=== PATIENT | male | born 1945 | race Caucasian/White ===

== ENCOUNTER → 2020-03-12 | Outpatient (CLI) | payer OTHER | LOC: CAT 09:54 | PROVIDERS: ATTEND Family Medicine | DX: Z13.6 Encounter for screening for cardiovascular disorders (principal); I25.10 Atherosclerotic heart disease of native coronary artery without angina pectoris; E78.00 Pure hypercholesterolemia, unspecified ==

== ENCOUNTER → 2020-04-12 | Outpatient (CLI) | payer OTHER | LOC: SJCVCIMAG 12:12 | PROVIDERS: ATTEND Internal Medicine Cardiovascular Disease | DX: R94.31 Abnormal electrocardiogram [ECG] [EKG] (principal); R06.09 Other forms of dyspnea; E78.00 Pure hypercholesterolemia, unspecified; I71.2 Thoracic aortic aneurysm, without rupture; R93.1 Abnormal findings on diagnostic imaging of heart and coronary circulation; I10 Essential (primary) hypertension; R09.89 Other specified symptoms and signs involving the circulatory and respiratory systems ==

== ENCOUNTER → 2020-04-12 | Outpatient (CLI) | payer OTHER | LOC: SJCVCIMAG 09:13 | PROVIDERS: ATTEND Family Medicine | DX: I77.810 Thoracic aortic ectasia (principal); I11.9 Hypertensive heart disease without heart failure; R93.1 Abnormal findings on diagnostic imaging of heart and coronary circulation ==

== ENCOUNTER → 2020-04-22 | Outpatient (CLI) | payer OTHER | LOC: SJCVCIMAG 08:08 | PROVIDERS: ATTEND Internal Medicine Cardiovascular Disease | DX: I71.4 Abdominal aortic aneurysm, without rupture (principal); I71.2 Thoracic aortic aneurysm, without rupture; R09.89 Other specified symptoms and signs involving the circulatory and respiratory systems; Z87.891 Personal history of nicotine dependence ==

== ENCOUNTER → 2020-04-23 | Outpatient (CLI) | payer OTHER | LOC: SJCVCIMAG 07:25 | PROVIDERS: ATTEND Internal Medicine Cardiovascular Disease | DX: I45.10 Unspecified right bundle-branch block (principal); I49.3 Ventricular premature depolarization; E78.5 Hyperlipidemia, unspecified; I10 Essential (primary) hypertension; Z79.899 Other long term (current) drug therapy; Z87.891 Personal history of nicotine dependence ==

== ENCOUNTER → 2020-04-28 | Outpatient (CLI) | payer OTHER ==
[~2020-04-28] VITALS: Ht 182.9 cm; Wt 122.5 kg
[~2020-04-28] MED LIST: ASPIR 8181 M1 PO; CRESTOR5 MG PO; DILTIAZEM ER180 M2 PO; FLOMAX0.4 MG PO; GLUCOSAMINE &1 EACH PO; OMEGA-31000 M2 PO; SINGULAIR 10 MG10 M1 PO; SUPER THERAVIT1 EACH PO; VITAMIN B-121000 MC2 PO; VITAMIN C500 M1 PO; ZESTRIL5 MG PO; ZYRTEC10 M4 PO
[2020-04-28 09:28] LABS: HEMOGLOBIN 16.1 gm/dL (14.0-18.0); MCH 32.8 pg (26.0-34.0); MCHC 33.7 g/dL (28.0-37.0); MCV 97.6 fL (80.0-100.0); RBC 4.92 mil/uL (4.50-6.00); RDW 13.3 % (10.5-14.5); WBC 10.5 thou/uL (4.0-11.0)
[2020-04-28 09:36] LABS: CREATININE 1.3 mg/dL (0.7-1.3); POTASSIUM 4.8 mmol/L (3.5-5.1)
[2020-04-28 09:41] VITALS: BP 131/75
--- NOTE | 2020-04-28 13:38 | EKG ---
[facility] [place] [address] ELECTROCARDIOGRAM REPORT Name: ELIANE RAMON Room #: REG [facility]#: [id number] Admission: 04/28/20 Attend Phys: Mauro Lomeli MD, Discharge: Date of : 49 Report #: [id number] THIS REPORT FOR: cc: Jose Alfredo Mcgill MD FAA FACE Jose Alfredo Mcgill MD FAA FACE Del Salmeron MD ~ THIS REPORT FOR: //name// [facility] Test Date: 2020-04-28 Test Time: 09:03:53 Pat Name: ELIANE RAMON Department: Room: Gender: Adult Crossing Guard: SBULRANDI : 1945 Requested By: Mauro Lomeli Order Number: [id number] MD: Del Salmeron Measurements Intervals [place] Rate: 62 P: 21 SC: 201 QRS: -31 QRSD: 149 T: 12 QT: 411 QTc: 418 Interpretive Statements Sinus rhythm Right bundle branch block Compared to ECG 02/12/1993 07:59:00 Right bundle-branch block now present Sinus bradycardia no longer present Electronically Signed On 04-28-2020 13:38:08 CDT by Del Salmeron [email or web address] <ELECTRONICALLY SIGNED> By: Del Salmeron MD 04/28/20 1338 2 2 Del Salmeron MD /EPI
--- NOTE | 2020-04-28 18:26 | CATHLAB ---
[facility] Jaleesa Narayanan [employer] [place] [address] INVASIVE PROCEDURE REPORT Name: ELIANE RAMON Room #: REG NABILA Ed#: [id number] Admission: 04/28/20 Attend Phys: Mauro Lomeli MD, Discharge: Date of : 49 Report #: [id number] THIS REPORT FOR: cc: Jose Alfredo Mcgill MD, FAAFP FACE Jose Alfredo Mcgill MD, FAAFP FACE Mauro Lomeli MD [facility] ~ APPROVED REPORT Study performed: 04/28/2020 12:21:34 Patient Details Patient Status: Out-Patient Room #: The patient is a 75 year-old male Event Personnel Mauro Lomeli Inseamer, Precious Fletcher RN RN, Daly Barcenas RTR, Geovanny Forrester Carly RTR Monitor Procedures Performed Art Access - R femoral artery* Left Heart Cath w/or w/o Coronaries [id number] [facility] Supravalvular Aortography Injection 9419972 ISVA Renal Bilateral Peripheral Angiography 7322167 CVRENALBIL 50972 Initial Mod Sed Same Phys/QHP Gr5y 402820 , 99004 Mod Sed Same Phys/QHP Ea 651904 Hemostasis w/ Mynx Procedure Narrative The Right Groin^ was infiltrated with 1% Lidocaine subcutaneous anesthesia. A PINNACLE 6FR Sheath #[id number] sheath was inserted into the RFA^. Coronary angiography was performed using coronary diagnostic catheters. The right coronary system was accessed and visualized with a JR4 catheter. The left coronary system was accessed and visualized with a JL4 catheter. The left ventricle was accessed and visualized with a PIGTAIL catheter. Left ventriculogram was performed in 30 degree projection. Closure device was deployed with a Fr MYNXGRIP 6/7F #[id number]. The patient tolerated the procedure well and there were no complications associated with the procedure. There was no hematoma. Intraoperative Conscious Sedation Sedation start time: 13:02 Case end Time: 13:27 Fentanyl 100 mcg Versed 2 mg [facility] [address] [address] INVASIVE PROCEDURE REPORT Name: TRISTENELIANE ACE Room #: REG [facility]#: [id number] Admission: 04/28/20 Attend Phys: Mauro Lomeli, Discharge: Date of : 49 Report #: [id number] Fluoro Time: 2.70 minutes Dose: DAP 91484.10 cGycm2 1413 mGy Contrast Type and Amount: Visipaque 105 ml Hemodynamics The aortic pressure is 167/72 mmHg with a mean of 110 mmHg. The left ventricular pressure is 155/7 mmHg with a mean of mmHg. The left ventricular end diastolic pressure is 18 mmHg. Conclusion 1. Normal left ventricular size and systolic function EF 60% #2 supravalvular aortogram revealing moderate aortic dilatation with 1+ aortic insufficiency #3 left main mild irregularity giving rise to LAD and circumflex #4 LAD with mild irregularities with an eccentric 40 to 50% lesion at the diagonal takeoff no high-grade occlusive disease #5 circumflex OM nondominant with mild disease #6 dominant right coronary has an eccentric 50% mid vessel lesion giving rise to PDA JOE mildly diseased #7 selective injection of bilateral renal arteries revealed mild atherosclerotic ostial disease no occlusive disease Recommendations and plan continue aggressive risk factor modification. No indication for coronary intervention. Will follow discharge protocol. <ELECTRONICALLY SIGNED> By: Mauro Lomeli MD, [facility] 04/28/201825 25 25 Mauro Lomeli MD, FACC /INF
== END | disposition home or self-care (01) ==
LOC: CATH 08:00
PROVIDERS: ATTEND Internal Medicine Cardiovascular Disease
DX: I25.10 Atherosclerotic heart disease of native coronary artery without angina pectoris (principal); I70.1 Atherosclerosis of renal artery; I35.1 Nonrheumatic aortic (valve) insufficiency; I10 Essential (primary) hypertension; E78.5 Hyperlipidemia, unspecified; K21.9 Gastro-esophageal reflux disease without esophagitis; Z98.890 Other specified postprocedural states; Z79.899 Other long term (current) drug therapy; Z79.82 Long term (current) use of aspirin

== ENCOUNTER → 2020-09-02 | Outpatient (CLI) | payer OTHER | LOC: SJCVC 14:42 | PROVIDERS: ATTEND Internal Medicine Cardiovascular Disease | DX: I45.10 Unspecified right bundle-branch block (principal); R00.0 Tachycardia, unspecified; R94.31 Abnormal electrocardiogram [ECG] [EKG]; I25.10 Atherosclerotic heart disease of native coronary artery without angina pectoris; I10 Essential (primary) hypertension; E78.00 Pure hypercholesterolemia, unspecified; R93.1 Abnormal findings on diagnostic imaging of heart and coronary circulation; I71.2 Thoracic aortic aneurysm, without rupture ==

== ENCOUNTER → 2021-04-27 | Outpatient (CLI) | payer OTHER | LOC: SJCVCIMAG 08:33 | PROVIDERS: ATTEND Internal Medicine Cardiovascular Disease | DX: I07.1 Rheumatic tricuspid insufficiency (principal); I27.20 Pulmonary hypertension, unspecified; R94.31 Abnormal electrocardiogram [ECG] [EKG]; I45.10 Unspecified right bundle-branch block; I25.10 Atherosclerotic heart disease of native coronary artery without angina pectoris; R93.1 Abnormal findings on diagnostic imaging of heart and coronary circulation; I71.2 Thoracic aortic aneurysm, without rupture; E78.00 Pure hypercholesterolemia, unspecified; I10 Essential (primary) hypertension; I25.2 Old myocardial infarction; Z87.891 Personal history of nicotine dependence; Z72.89 Other problems related to lifestyle; Z79.82 Long term (current) use of aspirin; Z79.899 Other long term (current) drug therapy; Z88.5 Allergy status to narcotic agent; Z88.1 Allergy status to other antibiotic agents; E78.5 Hyperlipidemia, unspecified ==